=== PATIENT | male | born 1950 | race Caucasian/White ===

== ENCOUNTER 2016-08-22 16:23 | Emergency (ER) | payer MEDICARE ==
[~2016-08-22] VITALS: Ht 175.3 cm; Wt 70.5 kg
[2016-08-22 16:41] VITALS: BP 128/48; PULSE 55; RESP 14; O2SAT 99
--- NOTE | 2016-08-22 16:49 | ED.REPORT ---
HPI-Syncope Date of Service Aug 22, 2016 ED Provider: Sonido Burroughs DO History of Present Illness: 66yo male had syncopal episode for 20-30 seconds just prior to arrival. It was precipitated by his large dog running into his R knee, he went down onto that knee in pain, and upon arising had syncope. Witnessed by family members. No seizure or incontinence. Pt. denies any CP, SOB, head injury, neck or back or abdominal pain. His hx. of CAD with CABG x 2 prompts his desire for medical evaluation. He denies any ongoingknee pain. Nursing Notes Stated Complaint: GROUND LEVEL FALL Chief Complaint: General Complaint Nursing Notes Reviewed: Yes Allergies: Coded Allergies: No Known Allergies (Unverified , 08/22/16) General Time Seen by Provider: 16:49 Chief Complaint Lost consciousness Syncope Description: Single episode Hx Obtained From: Patient Arrived By: Ambulance Onset Occurred: Just prior to arrival Context of Onset: Pain or painful procedure, Occurred at home Progression Since Onset: Rapidly improving Severity: Current: No pain currently Severity: Maximum: Moderate Associated with: Denies: Back pain, Chest pain, Diaphoresis, Dizziness, Incontinence bladder, Incontinence bowel, Vertigo, Weakness Pertinent Negative: Pt denies other symptoms Similar Sx Previous: No Risk-Syncope CAD Risk Stratification Known CAD RF Statements: Risk factors reviewed TAD Risk Stratification RF Statements: Risk factors reviewed SAH Risk Stratification Hypertension RF Statements: Risk factors reviewed PE Risk Stratification RF Statements: Risk factors reviewed Ectopic Risk Stratification RF Statements: No risk factors HEART Score HEART for MACE: Low index of susp (0), Normal ECG (0), 3+ CAD risk factors (2) , < or = to NL troponin (0) HEART for MACE Score: 0-3 (low risk 0.9%-1.7%) Past Medical History Past Medical History Reports: Coronary artery disease, Hypertension Past Surgical History Reports: CABG Smoking History Unknown if Ever Smoker Social History Drug Use: Denies drug use Other Social History: Good social support, Ambulatory Status Independent Review of Systems Constitutional: Denies: Chills, Fever Respiratory: Denies: Shortness of breath Cardiovascular: Denies: Chest pain GI: Denies: Abdominal pain Musculoskeletal: Denies: Joint pain Neurologic: Reports: Syncope, Denies: Abnormal movement, Bladder dysfunction, Bowel dysfunction, Confusion , Dizziness, Seizure, Vision change, Weakness Physical Exam Initial Vital Signs Vital Signs (First) Date Time Temp Pulse Resp B/P Pulse Ox O2 Delivery O2 Flow Rate FiO2 08/22/16 16:41 36.5 55 14 128/48 99 Room Air Initial VS: Vital signs normal General/Constitutional: Awake, Alert, No acute distress, Well hydrated, Not toxic appearing Respiratory / Chest: Breath sounds NL, Breath sounds = bilat, No respiratory distress Cardiovascular: Heart rate NL, Regular rhythm, Heart sounds NL Neurologic: Oriented X3, Speech NL, No motor deficits, No sensory deficits, CN II - XII intact, Cerebellar NL, Memory NL, Gait NL Neck: Supple, Non-tender Abdomen: Soft Interpretation & Diagnostics Lab Results Interpretation Result Diagram: 08/22/16 1710 08/22/16 2113 Test 08/22/16 17:10 08/22/16 17:35 08/22/16 19:10 08/22/16 19:35 White Blood Count 7.7th/mm3 (3.8-10.1) Red Blood Count 4.00mil/mm3 (4.40-5.80) Hemoglobin 11.7g/dL (13.8-17.2) Hematocrit 36.1% (41.0-50.0) Mean Corpuscular Volume 90.3fL (81-100) Mean Corpuscular Hemoglobin 29.3pg (27.0-35.0) Mean Corpuscular Hemoglobin Concent 32.4% (32.0-37.0) Red Cell Distribution Width 13.2% (12.3-15.4) Platelet Count 246bil/L (150-400) Neutrophils (%) (Auto) 64.6% (40-74) Lymphocytes (%) (Auto) 17.7% (14-46) Monocytes (%) (Auto) 10.3% (4-12) Eosinophils (%) (Auto) 6.5% (0-5) Basophils (%) (Auto) 0.6% (0-3) Total Bilirubin 0.6mg/dL (0.0-1.2) Aspartate Amino Transf (AST/SGOT) 23U/L (0-50) Alanine Aminotransferase (ALT/SGPT) 13U/L (0-44) Alkaline Phosphatase 85U/L (25-160) Total Protein 7.0g/dL (6.4-8.4) Albumin 4.0g/dL (3.4-5.0) Hold Carbajal Top Tube Received (Received) D-Dimer 0.50mg/L FEU (<0.50) Hold Urine Received (Received) Sodium Level 138mEq/L (134-144) Chloride Level 104mEq/L (97-108) Carbon Dioxide Level 21mmol/L (18-29) Blood Urea Nitrogen 19mg/dL (8-27) Creatinine 1.22mg/dL (0.76-1.27) Estimat Glomerular Filtration Rate 63mL/min (>59) Glucose Level 96mg/dL (60-99) Calcium Level 9.1mg/dL (8.5-10.1) Troponin T < 0.010ug/L (0.0-0.011) Test 08/22/16 21:13 Potassium Level 4.2mEq/L (3.5-5.2) Re-Eval/Medical Decision Med Decision/Clinical Course Pt. discussed with Dr. burroughs who advised fluids and recheck K+ and troponin. Repeat K+ = 6.4. Case discussed with Dr. Burroughs who advised treatment and admission. Care assumed by Dr. Burroughs at shift change. Counseled Regarding: Diagnosis, Lab results, Need for admission Discharge & Departure Shift Change Sign-Out Patient Care Transferred: Yes Laboratory Evaluation: Lab evaluation discussed Impression: Primary Impression: Hyperkalemia Additional Impressions: Syncope Syncope type: unspecified Qualified Code: R55 - Syncope and collapse Contusion of right knee Encounter type: initial encounter Qualified Code: S80.01XA - Contusion of right knee, initial encounter Disposition: Home Discharge Condition All VS Reviewed: Yes Condition: Improved Patient Instructions: Contusion in Adults (ED), Hyperkalemia (ED), Syncope (ED) Additional Instructions: Drink more water. Do not take your lisinopril tonight. Come back tomorrow at 6 PM so I can repeat your potassium and renal function tests. Stand up slowly. Your potassium was elevated and this may be related to dehydration and the POLLY inhibitor usage. I look forward to seeing you tomorrow repeat these tests. If all is well tomorrow, then on Wednesday you can start the POLLY inhibitor again. If you develop any chest pain, shortness of breath or any new or worrisome symptoms come right back to the emergency department. Your blood clot screening blood test was right at the negative cut off. This is hard to interpret. We have opted not to scan your chest because you did not have any chest symptoms whatsoever. If you develop any palpitations, chest pain, or shortness breath, come right back and I will scan your chest. We will again talk about this tomorrow. Otherwise I hope you enjoy your weekend. Follow-up with your primary care physician. Call Wednesday to set up a follow-up. EDSupervising Provider for APC: Sonido Burroughs DO Attending Statement I personally took a history performed a physical examination. Mr. Arteaga was feeling fine until the dog ran and was leg. He fell to the ground this cause rather significant leg pain. He then became very lightheaded when he went to stand up. He thinks it was related to the pain and him standing up quickly. He then had a syncopal episode. Mikey Kim has worked him up appropriately. Initially he was found to have hypovolemia and mild hyperkalemia. Potassium actually went up it would appear that this is spurious based on the repeat lab draws. Either way he was aggressively treated with fluids and Kayexalate. The potassium was pulled just after getting the Lights went out that is anything to do with the normalizing of his potassium. Either way my recommendations were for hospital admission. Jer declines this. He is feeling much better. Serial troponins were negative. D-dimer 0.5. Pulmonary emboli rule out criteria are met aside from his age. I talked to him by CAT scanning his chest. He does not wish to undergo this. I think that is reasonable. Pulmonary emboli can be a cause of undifferentiated syncope. I think this gentleman syncope is related to the pain and him standing up quickly. He had no chest pain, no palpitations no shortness of breath. I think the POLLY inhibitor with dehydration and why he was hyperkalemic. He will hold off on an POLLY inhibitor. He did agree to come back tomorrow for repeat his potassium movement. Otherwise I agree with Mikey Kim's note. Phill Kim Aug 22, 2016 16:49 Sonido Burroughs DO Aug 22, 2016 21:51 Netta Bustamante Aug 22, 2016 21:58
[2016-08-22 17:30] LABS: BASOPHILS % (AUTO) 0.6 % (0-3); EOSINOPHILS % (AUTO) 6.5 % (0-5); MONOCYTES % (AUTO) 10.3 % (4-12); Mean Corpuscular Hemoglobin 29.3 pg (27.0-35.0); Mean Corpuscular Volume 90.3 fL (81-100); NEUTROPHILS % (AUTO) 64.6 % (40-74); Platelet Count 246 bil/L (150-400)
[2016-08-22] MEDS ORDERED: 0.9% Sodium Chloride 1,000 ML IV ONE ×2 (18:25→20:30)
[2016-08-22 20:06] LABS: TROPONIN T < 0.010 ug/L (0.0-0.011)
[2016-08-22 20:19] VITALS: BP 104/40; PULSE 55; RESP 14; O2SAT 96
[2016-08-22] MEDS ORDERED: Insulin Human REGular-Omnicell 100 Unit/mL IV ONE (20:30)
[2016-08-22 22:18] VITALS: BP 108/50; PULSE 57; RESP 12; O2SAT 96
== END 2016-08-22 22:10 | disposition home or self-care (01) ==
LOC: EDBD 16:23 → SED 16:23 → UNDOADMOB 21:53 → MPC 21:53 → SED 22:10
DX: R55 Syncope and collapse (principal); E87.5 Hyperkalemia; S80.01XA Contusion of right knee, initial encounter; W19.XXXA Unspecified fall, initial encounter; Y93.9 Activity, unspecified; Y92.9 Unspecified place or not applicable; Y99.8 Other external cause status; I10 Essential (primary) hypertension; I25.10 Atherosclerotic heart disease of native coronary artery without angina pectoris; Z95.1 Presence of aortocoronary bypass graft
CPT/HCPCS: 36415; 80048; 80053; 84132; 84484; 85025; 85378; 93005; 96361; 96374; 99285; J1815; J7030

== ENCOUNTER 2016-08-23 18:15 | Emergency (ER) | payer MEDICARE ==
--- NOTE | 2016-08-23 18:24 | ED.REPORT ---
HPI-Recheck W/B/S Date of Service Aug 23, 2016 ED Provider: Sonido Burroughs DO Patient was seen here in the ED yesterday and labs showed hyperkalemia. The patient denied admission but stated he would follow up to have his labs rechecked today. His repeat labs showed normal potassium levels. Nursing Notes Stated Complaint: BLOOD DRAW Nursing Notes Reviewed: Yes Allergies: Coded Allergies: No Known Allergies (Unverified , 08/22/16) General Time Seen by Provider: 18:23 Chief Complaint Other (repeat labs) Hx Obtained From: Patient Arrived By: Walk-in Onset Occurred: Yesterday Progression Since Onset: Resolved Severity: Current: No pain currently Recent Healthcare: No recent hospitalization, Recent doctor visit Similar Sx Previous: No Past Medical History Past Medical History Reports: Coronary artery disease, Hypertension Past Surgical History Reports: CABG Smoking History Unknown if Ever Smoker Social History Drug Use: Denies drug use Other Social History: Good social support, Ambulatory Status Independent Review of Systems Constitutional: Denies: Chills, Fever Skin: Denies Itching, Denies Rash Complete sys rev & neg: except as marked. Respiratory: Denies: Shortness of breath Neurologic: Denies: Syncope Physical Exam Initial Vital Signs Heart rate 65 RR 16 Skin: Atraumatic, Warm, Dry General/Constitutional: Awake, Alert, No acute distress Head / Eyes: Atraumatic, Normocephalic, PERRL, EOMI Respiratory / Chest: Atraumatic, No respiratory distress Lower Extremity / Pelvis / MS: Atraumatic, Full range of motion Neurologic: Oriented X3, Speech NL, No motor deficits, No sensory deficits Psychiatric: Affect NL, Mood NL Interpretation & Diagnostics Lab Results Interpretation Result Diagram: 08/23/160 Test 08/23/16 18:40 Sodium Level 133mEq/L (134-144) Potassium Level 4.2mEq/L (3.5-5.2) Chloride Level 97mEq/L (97-108) Carbon Dioxide Level 22mmol/L (18-29) Blood Urea Nitrogen 15mg/dL (8-27) Creatinine 1.08mg/dL (0.76-1.27) Estimat Glomerular Filtration Rate 72mL/min (>59) Glucose Level 97mg/dL (60-99) Calcium Level 9.1mg/dL (8.5-10.1) Re-Eval/Medical Decision Med Decision/Clinical Course Need initial vitals and diagnosis :) Patient's potassium from 08/22/16 was 6.4, his repeat labs from today showed normal potassium levels of 4.2. Re-Evaluation/Progress : Time of Eval: 19:45 Re-Evaluation/Progress Note: Reviewed repeat labs with the patient over text after the patient left. Counseled Regarding: Diagnosis, Lab results, Need for follow-up, When/why to return to ED Discharge & Departure Disposition: Home Discharge Condition All VS Reviewed: Yes Condition: Stable Referrals: NOPCP (PCP) Sameera Attestation Portions of this note were transcribed by Sandra Bustamante. I, Dr. Burroughs personally performed the history, physical exam and medical decision-making; I reviewed and confirmed the accuracy of the information in the transcribed note. Signed by: Sameera Kim, 08/24/16 and 0200 Sonido Burroughs DO Aug 23, 2016 18:24 Netta Bustamante Aug 24, 2016 01:49
== END 2016-08-23 19:10 | disposition left against medical advice (07) ==
LOC: SED 18:15
DX: Z53.21 Procedure and treatment not carried out due to patient leaving prior to being seen by health care provider (principal)